=== PATIENT | male | born 1985 | race Caucasian/White ===

== ENCOUNTER 2018-06-28 10:40 | Day surgery (SDC) | payer OTHER ==
[2018-06-27 13:46] VITALS: BMI 27.4
[2018-06-28] MEDS ORDERED: CEFAZOLIN/Water 2 GM/20 ML SYRINGE ONE (11:40)
[2018-06-28] MEDS ORDERED: Bupivacaine PF 0.5% 30 ML VIAL ONE (12:00)
[2018-06-28] MEDS ORDERED: Fentanyl 100 MCG/2 ML VIAL ONE ×3 (12:46→14:33)
[2018-06-28] MEDS ORDERED: PROPOFOL 200 MG/20 ML VIAL ONE (13:32)
[2018-06-28] MEDS ORDERED: Lidocaine 1% PF 5 ML VIAL ONE (13:32)
[2018-06-28] MEDS ORDERED: Ketorolac Tromethamine 30 MG/ML VIAL ONE (13:32)
--- NOTE | 2018-06-28 18:37 | RAD ---
LEFT FOOT TWO VIEWS: 06/28/18 HISTORY: Left calcaneal fracture. COMPARISON: 11/11/16. The previously noted three internal fixation views stabilizing the calcaneus have been removed. IMPRESSION: Hardware removal with three internal fixation screws stabilizing the calcaneus being removed. POS: [facility]
--- NOTE | 2018-06-28 23:34 | OP ---
DATE OF PROCEDURE: 06/28/2018 PREOPERATIVE DIAGNOSIS: Symptomatic retained hardware, left calcaneus. POSTOPERATIVE DIAGNOSIS: Symptomatic retained hardware, left calcaneus. SURGICAL PROCEDURE: Removal of hardware from left calcaneus. ANESTHESIA: General. SURGEON: Randall Drew M.D. TOURNIQUET TIME: Zero. BLOOD LOSS: 5 mL. COMPLICATIONS: None. DRAINS: None. SPECIMEN: Explanted screws given to the patient. OUTCOME: Successful removal of three 4.0 cortical screws. INDICATIONS: Mr. Kim is a pleasant 33-year-old gentleman status post calcaneus fracture treated wi closed reduction and percutaneous screw stabilization. The patient has gone on to uneventful unio n of his fracture with near anatomic alignment of the calcaneus. The patient is having symptoms from a prominent screw head posteriorly and as such, he is now scheduled for removal of all 3 screws. In formed consent has been obtained. I believe all questions have been answered. DESCRIPTION OF PROCEDURE: The patient was brought to the operating room and a timeout performed foll owed by induction of general anesthesia. The patient was then positioned supine on the OR table and a sterile prep and drape was performed in the left lower extremity. Next, a small stab wound was mad e following each of the 3 scars from hardware placement. Next, blunt dissection was carried with a h emostat and then once the screw heads could be felt with the hemostat, a small frag screwdriver was i nserted and each of the 3 screws were removed without difficulty. Around the lateral most screw, the re was found to be some bony overgrowth and a small rongeur was used to remove some of this bone in h opes of providing further symptomatic relief for this gentleman. Once completed, the three wounds we re irrigated with bulb syringe and normal saline and then closed with a simple 3-0 nylon horizontal m attress stitch. A Xeroform gauze, Kerlix roll, and Agustin wrap dressing were applied to the left calcan eus and then patient was transferred to recovery room in stable condition. There were no complicatio ns. Patient tolerated the procedure well.
== END 2018-06-28 15:38 | disposition home or self-care (01) ==
LOC: SDC 10:40
PROVIDERS: ATTEND Orthopaedic Surgery
PROC: 0SP Lower Joints, Removal (ICD-10-PCS; principal; 2018-06-28)
DX: T84.84XA Pain due to internal orthopedic prosthetic devices, implants and grafts, initial encounter (principal)
CPT/HCPCS: 76001; 96374; J1885; J2001; J2704; J3010; S0020

== ENCOUNTER 2021-10-08 12:49 | Outpatient (CLI) | payer OTHER | END 2021-10-08 12:50 | disposition home or self-care (01) | LOC: CT 12:49 | PROVIDERS: ATTEND Family Medicine | DX: R31.9 Hematuria, unspecified (principal); N13.4 Hydroureter; K76.0 Fatty (change of) liver, not elsewhere classified; R91.8 Other nonspecific abnormal finding of lung field; N20.2 Calculus of kidney with calculus of ureter | CPT/HCPCS: 74176 ==